=== PATIENT | female | born 1975 | race Caucasian/White ===

== ENCOUNTER 2021-11-04 09:05 | Inpatient (IN) ==
[2021-11-04] MEDS ORDERED: Ondansetron 4 MG/2 ML VIAL IVP ONE (09:28)
[2021-11-04] MEDS ORDERED: 0.9 % Sodium Chloride 1,000 ML IVC ONE (09:28)
[2021-11-04 09:56] LABS: Basophils # 0.1 K/mcL (0.0-0.2); Basophils % 1.4 %; Eosinophils % 0.7 %; Hematocrit 38.8 % (35.3-44.9); Hemoglobin 13.7 g/dL (11.5-15.4); Immature Granulocytes % 2.9 % (0-4); Lymphocytes # 1.4 K/mcL (0.6-4.6); Lymphocytes % 23.5 %; Mean Corpuscular HGB Conc 35.3 g/dL (31.6-35.5); Mean Corpuscular Hemoglobin 31.4 pg (28.0-33.3); Mean Corpuscular Volume 88.8 fL (83.0-100.0); Monocytes % 16.8 %; Neutrophils # 3.2 K/mcL (1.6-8.9); Platelet Count 434 K/mcL (140-400); Red Blood Count 4.37 M/mcL (3.82-4.97); Red Cell Distribution Width 12.3 % (11.5-14.5); Segmented Neutrophils % 54.7 %; White Blood Count 5.8 K/mcL (4.3-11.1)
[2021-11-04 10:15] LABS: Acetaminophen 52 mcg/mL (10-20); Alanine Aminotransferase 27 Units/L (7-52); Albumin 3.8 g/dL (3.5-5.7); Albumin/Globulin Ratio 1.3 (1.1-2.2); Alkaline Phosphatase 72 Units/L (34-104); Aspartate Amino Transferase 21 Units/L (13-39); BUN/Creatinine Ratio 14 (6-26); Bilirubin,Direct 0.1 mg/dL (0.0-0.2); Bilirubin,Indirect 0.3 mg/dL (0.0-1.0); Bilirubin,Total 0.4 mg/dL (0.3-1.0); Blood Urea Nitrogen 11 mg/dL (6-20); Calcium 8.8 mg/dL (8.6-10.3); Carbon Dioxide 22 mEq/L (23-29); Chloride 105 mEq/L (98-107); Ethanol < 10 mg/dL (Less than 10); Glucose 73 mg/dL (70-105); Osmolality,Calculated 282 (280-300); Potassium 3.4 mEq/L (3.5-5.1); Salicylate 35.2 mg/dL (15.0-30.0); Sodium 137 mEq/L (136-145); Total Protein 6.8 g/dL (6.4-8.9); eGFR For African Americans > 60 (> 60); eGFR For Non-African Americans > 60 (> 60)
[2021-11-04 10:37] LABS: Bilirubin,Urine Negative (Negative); Blood,Urine Negative (Negative); Clarity,Urine Clear (Clear); Color,Urine Light-Yellow (Yellow); Glucose,Urine (UA) Normal (Normal); Ketones,Urine 40 mg/dL (Negative); Leukocyte Esterase,Urine Negative (Negative); Nitrite,Urine Negative (Negative); Protein,Urine Trace mg/dL (Neg-Trace); Specific Gravity,Urine 1.015 (1.010-1.025); Urobilinogen,Urine Normal (Normal)
[2021-11-04] MEDS ORDERED: D5 IVC ONE ×3 (10:40→16:00)
[2021-11-04] MEDS ORDERED: ACETYLCYSTEINE IVC ONE ×3 (10:40→16:00)
[2021-11-04] MEDS ORDERED: WATER IVC ONE ×3 (10:40→16:00)
[2021-11-04 10:48] LABS: ABG Base Excess -3 mEq/L (-2 to 3); ABG HCO3 19 mEq/L (21-27); ABG Oxygen Saturation 98 % (95-98); ABG PCO2 23 mmHg (35-45); ABG PH 7.52 pH Units (7.32-7.45); ABG PO2 87 mmHg (85-104); ABG TCO2 19 mEq/L (20-26)
[2021-11-04] MEDS ORDERED: Naloxone 0.4 MG/ML INJ IVP PRN (11:00)
[2021-11-04] MEDS: Sodium Bicarbonate 150 MEQ in D5% in Water 1,000 ML IVC SCH (11:30)
[2021-11-04 11:37] LABS: Amphetamine Screen,Urine Negative ng/mL (Cutoff=1000); Barbiturate Screen,Urine Negative ng/mL (Cutoff=200); Benzodiazepines Screen,Urine Negative ng/mL (Cutoff=200); Cannabinoid Screen,Urine Negative ng/mL (Cutoff = 50); Cocaine Screen,Urine Negative ng/mL (Cutoff= 300); Opiate Screen,Urine Negative ng/mL (Cutoff=300); Phencyclidine Screen,Urine Negative ng/mL (Cutoff=25)
[2021-11-04] MEDS: Pantoprazole 40 MG VIAL IVP SCH (18:10)
[2021-11-05] MEDS: Sodium Bicarbonate 150 MEQ in D5% in Water 1,000 ML IVC SCH ×2 (00:12→10:01)
[2021-11-05] MEDS ORDERED: *HR* LORazepam 2 MG/ML VIAL IVP ONE (03:00)
[2021-11-05] MEDS: Pantoprazole 40 MG VIAL IVP SCH (05:22)
[2021-11-05 08:34] LABS: Basophils # 0.1 K/mcL (0.0-0.2); Basophils % 1.1 %; Eosinophils # 0.1 K/mcL (0.0-0.6); Hematocrit 36.7 % (35.3-44.9); Immature Granulocytes % 2.3 % (0-4); Lymphocytes # 1.6 K/mcL (0.6-4.6); Lymphocytes % 27.9 %; Mean Corpuscular HGB Conc 35.4 g/dL (31.6-35.5); Mean Corpuscular Hemoglobin 31.5 pg (28.0-33.3); Mean Corpuscular Volume 88.9 fL (83.0-100.0); Mean Platelet Volume 8.7 fL (9.4-12.4); Monocytes # 0.7 K/mcL (0.0-1.3); Monocytes % 12.1 %; Neutrophils # 3.1 K/mcL (1.6-8.9); Platelet Count 382 K/mcL (140-400); Red Blood Count 4.13 M/mcL (3.82-4.97); Red Cell Distribution Width 12.3 % (11.5-14.5); Segmented Neutrophils % 54.6 %; White Blood Count 5.6 K/mcL (4.3-11.1)
[2021-11-05 08:55] LABS: Acetaminophen < 10 mcg/mL (10-20); Alanine Aminotransferase 206 Units/L (7-52); Albumin 3.3 g/dL (3.5-5.7); Albumin/Globulin Ratio 1.3 (1.1-2.2); Alkaline Phosphatase 63 Units/L (34-104); Aspartate Amino Transferase 143 Units/L (13-39); BUN/Creatinine Ratio 9 (6-26); Bilirubin,Indirect 0.3 mg/dL (0.0-1.0); Bilirubin,Total 0.3 mg/dL (0.3-1.0); Blood Urea Nitrogen 6 mg/dL (6-20); Calcium 8.4 mg/dL (8.6-10.3); Carbon Dioxide 29 mEq/L (23-29); Chloride 104 mEq/L (98-107); Globulin 2.5 g/dL (2.4-3.5); Glucose 103 mg/dL (70-105); Osmolality,Calculated 284 (280-300); Potassium 3.1 mEq/L (3.5-5.1); Sodium 138 mEq/L (136-145); Total Protein 5.8 g/dL (6.4-8.9); eGFR For African Americans > 60 (> 60); eGFR For Non-African Americans > 60 (> 60)
[2021-11-05] MEDS ORDERED: WATER IVC ONE (10:00)
[2021-11-05] MEDS ORDERED: ACETYLCYSTEINE IVC ONE (10:00)
[2021-11-05] MEDS ORDERED: D5 IVC ONE (10:00)
[2021-11-05 10:49] LABS: INR 1.8; Prothrombin Time 19.5 Seconds (9.4-12.1)
[2021-11-05] MEDS ORDERED: ALPRAZolam 0.25 MG TABLET PO PRN (12:10)
[2021-11-05] MEDS: QUEtiapine Fumarate 25 MG TABLET PO SCH ×2 (15:02→20:45)
[2021-11-05 17:11] LABS: Albumin 3.5 g/dL (3.5-5.7); Albumin/Globulin Ratio 1.3 (1.1-2.2); Bilirubin,Direct 0.1 mg/dL (0.0-0.2); Bilirubin,Indirect 0.3 mg/dL (0.0-1.0); Bilirubin,Total 0.4 mg/dL (0.3-1.0); Globulin 2.6 g/dL (2.4-3.5); Total Protein 6.1 g/dL (6.4-8.9)
[2021-11-06 02:22] LABS: Alanine Aminotransferase 303 Units/L (7-52); Albumin 3.2 g/dL (3.5-5.7); Albumin/Globulin Ratio 1.2 (1.1-2.2); Alkaline Phosphatase 59 Units/L (34-104); Aspartate Amino Transferase 177 Units/L (13-39); BUN/Creatinine Ratio 9 (6-26); Bilirubin,Total 0.4 mg/dL (0.3-1.0); Blood Urea Nitrogen 5 mg/dL (6-20); Calcium 8.4 mg/dL (8.6-10.3); Carbon Dioxide 20 mEq/L (23-29); Chloride 108 mEq/L (98-107); Globulin 2.6 g/dL (2.4-3.5); Glucose 101 mg/dL (70-105); Magnesium 1.8 mg/dL (1.6-2.6); Osmolality,Calculated 283 (280-300); Phosphorous 2.9 mg/dL (2.7-4.5); Potassium 3.5 mEq/L (3.5-5.1); Sodium 138 mEq/L (136-145); Total Protein 5.8 g/dL (6.4-8.9); eGFR For African Americans > 60 (> 60); eGFR For Non-African Americans > 60 (> 60)
[2021-11-06 02:23] LABS: Albumin 3.2 g/dL (3.5-5.7); Albumin/Globulin Ratio 1.2 (1.1-2.2); Bilirubin,Direct 0.1 mg/dL (0.0-0.2); Bilirubin,Indirect 0.3 mg/dL (0.0-1.0); Bilirubin,Total 0.4 mg/dL (0.3-1.0); Globulin 2.6 g/dL (2.4-3.5); Total Protein 5.8 g/dL (6.4-8.9)
[2021-11-06] MEDS ORDERED: D5 IVC ONE (04:00)
[2021-11-06] MEDS ORDERED: WATER IVC ONE (04:00)
[2021-11-06] MEDS ORDERED: ACETYLCYSTEINE IVC ONE (04:00)
[2021-11-06] MEDS: QUEtiapine Fumarate 25 MG TABLET PO SCH ×4 (08:01→20:45)
[2021-11-06] MEDS ORDERED: Saline Nasal Spray 44 ML BOTTLE NS PRN ×2 (08:17→08:18)
[2021-11-06] MEDS ORDERED: Saliva Stimulant 44.3ml BOTTLE PO PRN (13:16)
[2021-11-06] MEDS ORDERED: Artificial Tears SOLN 15 ML BOTTLE BOTH EYES PRN (13:16)
[2021-11-06 18:47] LABS: Alanine Aminotransferase 513 Units/L (7-52); Aspartate Amino Transferase 300 Units/L (13-39)
[2021-11-06] MEDS ORDERED: Acetylcysteine 6,600 MG in D5% in Water 1,000 ML IVC ONE (20:00)
[2021-11-06] MEDS: Melatonin 3 MG TABLET PO SCH (20:45)
[2021-11-07 01:08] LABS: Influenza A PCR Negative (Negative); Influenza B PCR Negative (Negative); Resp. Syncytial Virus PCR Negative (Negative)
[2021-11-07 01:09] LABS: SARS-CoV-2 by PCR (In House) Negative (Negative)
[2021-11-07 02:16] LABS: Alanine Aminotransferase 499 Units/L (7-52); Albumin 3.3 g/dL (3.5-5.7); Albumin/Globulin Ratio 1.2 (1.1-2.2); Alkaline Phosphatase 60 Units/L (34-104); Aspartate Amino Transferase 271 Units/L (13-39); BUN/Creatinine Ratio 9 (6-26); Bilirubin,Total 0.4 mg/dL (0.3-1.0); Blood Urea Nitrogen 5 mg/dL (6-20); Calcium 8.7 mg/dL (8.6-10.3); Carbon Dioxide 24 mEq/L (23-29); Chloride 107 mEq/L (98-107); Globulin 2.7 g/dL (2.4-3.5); Glucose 105 mg/dL (70-105); Osmolality,Calculated 280 (280-300); Potassium 3.4 mEq/L (3.5-5.1); Sodium 136 mEq/L (136-145); eGFR For African Americans > 60 (> 60); eGFR For Non-African Americans > 60 (> 60)
[2021-11-07] MEDS: QUEtiapine Fumarate 25 MG TABLET PO SCH ×3 (07:42→21:34)
[2021-11-07 11:07] LABS: INR 1.3; Prothrombin Time 14.9 Seconds (9.4-12.1)
[2021-11-07 11:59] LABS: Albumin 3.4 g/dL (3.5-5.7); Albumin/Globulin Ratio 1.3 (1.1-2.2); Bilirubin,Direct 0.1 mg/dL (0.0-0.2); Bilirubin,Indirect 0.3 mg/dL (0.0-1.0); Bilirubin,Total 0.4 mg/dL (0.3-1.0); Globulin 2.6 g/dL (2.4-3.5)
[2021-11-07 20:30] LABS: Albumin 3.8 g/dL (3.5-5.7); Albumin/Globulin Ratio 1.3 (1.1-2.2); Bilirubin,Direct 0.1 mg/dL (0.0-0.2); Bilirubin,Indirect 0.3 mg/dL (0.0-1.0); Bilirubin,Total 0.4 mg/dL (0.3-1.0); Total Protein 6.8 g/dL (6.4-8.9)
[2021-11-07] MEDS: Melatonin 3 MG TABLET PO SCH (21:34)
[2021-11-07] MEDS ORDERED: polyethylene glycoL 3350 17 GM POWD.PACK PO ONE (23:13)
[2021-11-08 05:25] VITALS: BP 110/77; PULSE 97; TEMP 97.5; O2SAT 96
[2021-11-08 06:05] LABS: Alanine Aminotransferase 422 Units/L (7-52); Albumin 3.6 g/dL (3.5-5.7); Albumin/Globulin Ratio 1.3 (1.1-2.2); Alkaline Phosphatase 68 Units/L (34-104); Aspartate Amino Transferase 153 Units/L (13-39); BUN/Creatinine Ratio 12 (6-26); Bilirubin,Direct 0.1 mg/dL (0.0-0.2); Bilirubin,Indirect 0.4 mg/dL (0.0-1.0); Bilirubin,Total 0.5 mg/dL (0.3-1.0); Blood Urea Nitrogen 7 mg/dL (6-20); Calcium 9.1 mg/dL (8.6-10.3); Carbon Dioxide 25 mEq/L (23-29); Chloride 106 mEq/L (98-107); Globulin 2.7 g/dL (2.4-3.5); Glucose 85 mg/dL (70-105); Osmolality,Calculated 283 (280-300); Potassium 4.1 mEq/L (3.5-5.1); Sodium 138 mEq/L (136-145); Total Protein 6.3 g/dL (6.4-8.9); eGFR For African Americans > 60 (> 60); eGFR For Non-African Americans > 60 (> 60)
[2021-11-08] MEDS: QUEtiapine Fumarate 25 MG TABLET PO SCH (07:50)
[2021-11-08] MEDS ORDERED: QUEtiapine Fumarate 25 MG TABLET PO SCH (15:00)
== END 2021-11-08 15:35 | DRG 918 ==
LOC: EMEROOARM 09:05 → SUATTDRO 11:17 → 2ANU 11:17
PROVIDERS: ADMIT Internal Medicine; ATTEND Internal Medicine

== ENCOUNTER 2021-11-08 15:44 | Inpatient (IN) ==
[2021-11-08] MEDS ORDERED: *HR* LORazepam 1 MG TABLET PO PRN (15:52)
[2021-11-08] MEDS ORDERED: haloperidoL 5 MG TABLET PO PRN (15:52)
[2021-11-08] MEDS ORDERED: Ibuprofen 400 MG TABLET PO PRN (15:52)
[2021-11-08] MEDS ORDERED: MOM Conc 10 ML UD.LIQ PO PRN (15:52)
[2021-11-08] MEDS ORDERED: *HR* LORazepam 2 MG/ML VIAL IM PRN (15:52)
[2021-11-08] MEDS ORDERED: traZODone 50 MG TABLET PO PRN (15:52)
[2021-11-08] MEDS ORDERED: Mag Hydrox/Al Hydrox/Simeth 30 ML UDC PO PRN (15:52)
[2021-11-08] MEDS ORDERED: Haloperidol Lactate 5 MG/ML VIAL IM PRN (15:52)
[2021-11-08] MEDS: QUEtiapine Fumarate 25 MG TABLET PO SCH (21:39)
[2021-11-08] MEDS: Melatonin 3 MG TABLET PO SCH (21:39)
[2021-11-09] MEDS: QUEtiapine Fumarate 25 MG TABLET PO SCH (09:42)
[2021-11-09] MEDS ORDERED: QUEtiapine Fumarate 25 MG TABLET PO PRN (10:22)
[2021-11-09] MEDS: Cholecalciferol (D-3) 1,000 UNIT (25MCG) TABLET PO SCH (11:31)
[2021-11-09] MEDS: Vitamin B Complex/Vit C/Vit E 1 EACH TABLET PO SCH (11:31)
[2021-11-09] MEDS: hydrOXYzine pamoate 25 MG CAPSULE PO PRN ×2 (16:07→21:45)
[2021-11-09] MEDS: Melatonin 3 MG TABLET PO SCH (21:44)
[2021-11-09] MEDS: Saliva Stimulant 44.3ml BOTTLE PO PRN (21:44)
[2021-11-10] MEDS: Cholecalciferol (D-3) 1,000 UNIT (25MCG) TABLET PO SCH (09:14)
[2021-11-10] MEDS: Vitamin B Complex/Vit C/Vit E 1 EACH TABLET PO SCH (09:14)
[2021-11-10] MEDS ORDERED: Moderna Covid-19 Vaccine 100MCG/0.5mL IM ONE (19:00)
[2021-11-10] MEDS: hydrOXYzine pamoate 25 MG CAPSULE PO PRN (21:18)
[2021-11-10] MEDS: Melatonin 3 MG TABLET PO SCH (21:18)
[2021-11-10] MEDS: Saliva Stimulant 44.3ml BOTTLE PO PRN (21:19)
[2021-11-11 08:44] VITALS: BP 105/68; PULSE 95; TEMP 98.6; O2SAT 98
[2021-11-11] MEDS: Vitamin B Complex/Vit C/Vit E 1 EACH TABLET PO SCH (08:44)
[2021-11-11] MEDS: Cholecalciferol (D-3) 1,000 UNIT (25MCG) TABLET PO SCH (08:44)
[2021-11-11] MEDS: FLU Vac QV 21-22 (6Month+)/PF 0.5 ML SYRINGE IM ONE ×2 (12:50→12:57)
== END 2021-11-11 13:10 | disposition home or self-care (01) | DRG 918 ==
LOC: 1ANU 15:44
PROVIDERS: ADMIT Psychiatry & Neurology Psychiatry; ATTEND Psychiatry & Neurology Psychiatry